=== PATIENT | male | born 1985 ===

== ENCOUNTER 2016-11-21 00:44 | Emergency (ER) | payer SELFPAY ==
[2016-11-21 01:01] VITALS: TEMP 98.3; O2SAT 98
[2016-11-21] MEDS ORDERED: TDAP Vaccine 0.5 mL Syr IM ONE (01:12)
--- NOTE | 2016-11-21 01:30 | ED PDOC ---
HPI: General Adult Time Seen by Provider: 11/21/16 00:57 Chief Complaint (Nursing): Lower Extremity Problem/Injury History Per: Patient Additional Complaint(s): Pt. states for the past 2 weeks he's had atraumatic L heel blister. Reports no pain to area. States that he does do a lot of walking. Denies numbness, tingling , trauma, fever. Past Medical History Reviewed: Historical Data, Nursing Documentation, Vital Signs Vital Signs: Last Vital Signs Temp 98.3 F 11/21/16 00:58 Pulse 104 H 11/21/16 01:39 Resp 20 11/21/16 01:39 BP 99/66 L 11/21/16 01:39 Pulse Ox 98 11/21/16 01:39 - Family History Family History: States: No Known Family Hx - Allergies Allergies/Adverse Reactions: Allergies Allergy/AdvReac Type Severity Reaction Status Date / Time No Known Allergies Allergy Verified 11/21/16 00:58 Review of Systems ROS Statement: Except As Marked, All Systems Reviewed And Found Negative Physical Exam - Physical Exam Appears: Positive for: Well, Non-toxic, No Acute Distress Skin: Positive for: Normal Color, Warm. Negative for: Rash Extremity: Positive for: Other (L heel with non-intact blister without surrounding erythema or discharge) - ECG O2 Sat by Pulse Oximetry: 98 - Progress ED Course And Treament: tetanus prophylaxis administered wound cleansed and dressed Disposition - Clinical Impression Clinical Impression: Friction blister - Patient ED Disposition Is Patient to be Admitted: No - Disposition Referrals: [facility] [Outside] Disposition: Routine/Home Disposition Time: 02:31 Condition: STABLE Instructions: Blister (ED) Print Language: AMHARIC
[2016-11-21 01:39] VITALS: BP 99/66; PULSE 104; RESP 20
[2016-11-21] MEDS ORDERED: Bacitracin Ointment 30 GM TUBE ONE (01:54)
== END 2016-11-21 02:48 | disposition home or self-care (01) ==
LOC: H.ER 00:44
DX: L08.9 Local infection of the skin and subcutaneous tissue, unspecified (principal)